=== PATIENT | female | born 1935 | race Caucasian/White ===

== ENCOUNTER → 2017-04-18 | Outpatient (CLI) | payer MEDICARE, OTHER ==
[~2017-04-18] MED LIST: FLEXERIL10 MG PO; PRINIVIL10 MG PO
== END | disposition short-term general hospital (02) ==
LOC: CLORTH 09:55
DX: Z47.89 Encounter for other orthopedic aftercare (principal); M25.562 Pain in left knee; M25.552 Pain in left hip; R29.898 Other symptoms and signs involving the musculoskeletal system; M85.862 Other specified disorders of bone density and structure, left lower leg; M85.88 Other specified disorders of bone density and structure, other site
CPT/HCPCS: 73502-LT

== ENCOUNTER → 2017-05-02 | Outpatient (CLI) | payer MEDICARE, OTHER | END | disposition short-term general hospital (02) | LOC: CLORTH 07:36 | DX: Z47.89 Encounter for other orthopedic aftercare (principal); M25.552 Pain in left hip ==